=== PATIENT | female | born 1975 | race African-American/Black ===

== ENCOUNTER 2016-07-29 06:27 | Day surgery (SDC) | payer OTHER ==
[2016-07-27 12:47] VITALS: BMI 31.9
[2016-07-29] MEDS ORDERED: ceFAZolin SODIUM 1 GM VIAL ONE (07:15)
[2016-07-29] MEDS ORDERED: MIDAZOLAM HCL 2 MG/2 ML SINGLE DOSE VIAL ONE (07:56)
[2016-07-29] MEDS ORDERED: PROPOFOL 20 ML ONE ×2 (08:17→08:45)
[2016-07-29] MEDS ORDERED: ROCURONIUM BROMIDE 50 MG/5 ML VIAL ONE (08:18)
[2016-07-29] MEDS ORDERED: ceFAZolin SODIUM 1 GM VIAL IVPB ONE (08:22)
[2016-07-29] MEDS ORDERED: ONDANSETRON 4 MG/2 ML VIAL ONE (09:38)
[2016-07-29] MEDS ORDERED: DEXAMETHASONE SOD PHOSPHATE 4 MG/1 ML VIAL ONE (09:38)
[2016-07-29] MEDS ORDERED: GLYCOPYRROLATE 0.2 MG/1 ML VIAL ONE (09:41)
[2016-07-29] MEDS ORDERED: NEOSTIGMINE METHYLSULFATE 0.5 MG/ML - 10 ML MDV ONE (09:41)
[2016-07-29] MEDS ORDERED: ONDANSETRON 4 MG/2 ML VIAL IVPUSH PRN ×2 (10:27→18:01)
[2016-07-29] MEDS ORDERED: LACTATED RINGERS SOLUTION 1,000 ML IV SCH (10:30)
[2016-07-29] MEDS ORDERED: ACETAMINOPHEN INJECTION 100 ML IVPB ONE (10:37)
[2016-07-29] MEDS ORDERED: ACETAMINOPHEN 1000 MG/100 ML VIAL (NON FORMULARY) IVPB ONE (10:47)
[2016-07-29] MEDS ORDERED: oxyCODONE HCL 5 MG TABLET PO PRN (11:55)
[2016-07-29] MEDS ORDERED: ACETAMINOPHEN 325 MG TABLET (FP) PO PRN (11:59)
[2016-07-29] MEDS ORDERED: D5-1/2NS+20 MEQ KCL - 1,000 ML IV SCH (12:00)
[2016-07-29] MEDS: morphine CARPU-JECT 4 MG/1 ML DISP.SYRIN IVPB PRN ×2 (19:28→23:09)
[2016-07-30] MEDS ORDERED: ENOXAPARIN NA (PORCINE) 40 MG/0.4 ML DISP.SYRIN SQ SCH (10:00)
[2016-07-30 10:50] VITALS: BP 129/92; PULSE 65; TEMP 98.2
--- NOTE | 2016-07-30 12:32 | PATH ---
Surgical Pathology Report Patient Name: CATIE QUIJANO [facility]. Rec. #: [id number] /Age/Gender: 1975 (Age: 40) / F Account: [id number] Location: AMBULATORY SURG Taken: 07/29/2016 Received: 07/29/2016 Reported: 07/30/2016 Physicians: Osavldo Reynolds M.D. 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 PARATHYROID TISSUE (x1) IDENTIFIED. Electronically Signed Lisandro Rodriguez M.D. Gross Description Received in formalin labeled "left thyroid" is an 8 g, 3.7 x 2.1 x 2.0 cm left thyroid lobe with a suture marking the superior pole, per the surgeon. The outer capsule is choi-red and intact. Sectioning reveals a 1.1 cm in greatest dimension choi colloid appearing nodule in the inferior pole. The nodule abuts the outer capsule but does not appear to invade through it. The remaining thyroid parenchyma is choi-red and heterogeneous. The specimen is entirely and sequentially submitted from superior to inferior in 7 cassettes with the nodule in cassettes 3-6. 07/29/201607/29/2016
--- NOTE | 2016-07-30 15:02 | OP ---
DATE OF OPERATION: 07/29/2016 PREOPERATIVE DIAGNOSIS: Left thyroid nodule. POSTOPERATIVE DIAGNOSIS: Left thyroid nodule (final pathology pending). PROCEDURE: Left thyroid lobectomy/intermediate wound closure (5 cm). OPERATING SURGEON: Osvaldo Reynolds MD SENIOR PRIVATE CLIENT ADVISOR: Reece Hargrove MD ANESTHESIA: General; Aundrea Valentine MD HISTORY: A 40-year-old woman who presents for left thyroid lobectomy as management of a 2-cm left thyroid nodule. Indications, alternatives, and possible complications reviewed. Consent obtained. DESCRIPTION OF PROCEDURE: With the patient in the supine position, the neck extended, the anterior neck was prepped and draped in sterile fashion using chlorhexidine. A 5-cm anterior transverse incision was made approximately 2 fingerbreadths above the sternal notch. The incision was deepened into the subcutaneous space. The subcutaneous tissues were as was the platysma and the neck entered. The superior flap was raised to the level of the hyoid bone. The inferior flap was raised to the level of the recess of the sternal notch. Retractors were placed. The strap muscles were then divided in the midline. The left strap muscles were retracted laterally, exposing the left lobe of the thyroid. First directing our attention to the inferior thyroid lobe, the inferior thyroid vessels were identified, taken serially, clamped, divided and ligated. The recurrent laryngeal nerve on the left was identified and noted throughout the course of the dissection. The lobe was then retracted to the right side, and the middle thyroid vein was identified and taken with the ligature. Now directing our attention to the superior pole, superior pole vessels were taken serially under direct vision. The superior parathyroid gland on the left side was identified. The inferior gland was not seen during the course of the dissection. The gland was then retracted up over the trachea where it was freed from the trachea using the ligature and the cautery system. Ultimately, the thyroid was divided at the junction of the isthmus with the right lobe, and the left lobe and isthmus were delivered. After adequate hemostasis, the wound was closed in layers. The strap muscles were reapproximated using continuous 3-0 chromic suture. The platysma was approximated using interrupted 3-0 chromic sutures. The subcutaneous layer was approximated with interrupted 3-0 chromic suture. The skin edges were closed using subcuticular 4-0 Biosyn sutures. Dermabond was applied and the procedure terminated. Needle and instrument counts were correct. Estimated blood loss: Minimal. Specimen: Left thyroid lobe and isthmus. Drains: None. Implants: None. Patient tolerated the procedure and the procedure was terminated. Kiersten [id number] MTDD
--- NOTE | 2016-08-04 09:27 | HP ---
DATE OF ADMISSION: 07/29/2016 DATE OF DICTATION: 06/23/2016 DATE OF SURGERY: 07/29/2016. REASON FOR ADMISSION: Left thyroid nodule. BRIEF HISTORY: This is a 40-year-old female with multinodular goiter. The patient is noted to have an enlarging left thyroid nodule. This year's ultrasound demonstrated the nodule to be approximately 2 cm in size. The patient had an FNA of this that was nondiagnostic. Currently the patient has no complaints of voice changes or shortness of breath but she does complain of having some mild dysphagia and difficulty swallowing her spit. ULTRASOUND FINDINGS: Right lobe is approximately 5 cm in size, left lobe is 5 cm in size as well. The right lobe has a 6-mm nodule noted (largest mass on the right side), and on the left the largest one is 2 cm in size. Past medical history significant for hypertension, borderline diabetes, and the patient has had a history of blood clot/pulmonary. She also has a history of arthritic changes. PAST SURGICAL HISTORY: None. MEDICATIONS: Synthroid and chlorthalidone. ALLERGIES: EXCEDRIN, patient gets swollen eyes. SOCIAL HISTORY: She does not smoke. She drinks socially. PHYSICAL EXAMINATION: Lungs: Clear. Heart: Regular rhythm. Abdomen: Soft. HEENT: The patient has mild exophthalmos. Her thyroid function tests are within normal limits. Neck: The patient has a mass in the left neck consistent with a left thyroid nodule. The right thyroid is not remarkable on palpation. She has no cervical adenopathy. Her voice is reasonable and does not appear to be hoarse. Trachea is midline. IMPRESSION/PLAN: Left thyroid nodule: This is a 40-year-old female with an enlarging left thyroid nodule. Ultrasound-guided FNA demonstrated insufficient pathology. Patient and myself had a long conversation regarding the various approaches with repeat FNA versus surgical excision of the left thyroid. Patient has opted to proceed with left thyroid lobectomy. The indications, alternatives and complications of the procedure have been discussed at length, questions have been answered. Will plan to obtain written consent the day of surgery. LARA DYKES M.D. [id number] cc: Wellington Gray MD; Asya Luna MD, [address], [place] [phone].
== END 2016-07-30 10:44 | disposition home or self-care (01) ==
LOC: JASUSAT 06:27 → J6S 10:05 → JASUSAT 07-30 10:44
PROVIDERS: ATTEND Surgery
PROC: 0GTG0ZZ Resection of Left Thyroid Gland Lobe, Open Approach (ICD-10-PCS; principal; 2016-07-29 08:00)
DX: E04.2 Nontoxic multinodular goiter (principal)
CPT/HCPCS: 84703; 88307-TC; 94760